=== PATIENT | male | born 1995 | race Caucasian/White ===

== ENCOUNTER 2023-06-07 18:10 | Emergency (ER) | payer BC, SELFPAY ==
[2023-06-07 19:08] VITALS: BP 154/74; PULSE 110; RESP 18; TEMP 36.8; O2SAT 100; BMI 84.7
--- NOTE | 2023-06-07 20:44 | ED.WOUNDLAC ---
HPI - Wound/Laceration General Chief Complaint: Wound/Laceration Stated Complaint: left hand laceration Time Seen by Provider: 06/07/23 20:12 Source: patient and family Mode of arrival: ambulatory Limitations: no limitations History of Present Illness HPI narrative: This is a 27-year-old male who has a history of insulin-dependent diabetes and hypertension who presents to the ER with complaints of laceration to the left 2nd digit from an Axe while chopping wood. Patient's tetanus status is unknown. He denies any numbness, tingling, weakness of the extremity. Related Data Previous Rx's Medication Instructions Recorded cephalexin 500 mg capsule 500 mg PO BID #14 caps 06/07/23 Allergies Allergy/AdvReac Type Severity Reaction Status Date / Time No Known Allergies Allergy Verified 06/07/23 19:07 [No Known Allergies*] Review of Systems Review of Systems: Yes all other systems are reviewed and are negative Constitutional: Constitutional: Reports no additional constitutional complaints, Denies body ache(s), Denies chills, Denies fever(s), Denies headache(s) and Denies weakness Eyes: Eyes: Reports no additional eye complaints and Denies change in vision ENT: Reports system reviewed and no additional complaints, except as documented, Denies dizziness, Denies headache(s), Denies nasal congestion, Denies nasal discharge and Denies neck pain Cardiovascular: Cardiovascular: Reports no additional cardiovascular complaints, Denies chest pain, Denies leg edema and Denies dyspnea Respiratory: Respiratory: Reports no additional respiratory complaints, Denies cough and Denies dyspnea Gastrointestinal: Gastrointestinal: Reports no additional gastrointestinal complaints, Denies abdominal pain, Denies diarrhea, Denies nausea and Denies vomiting Genitourinary: Genitourinary: Denies urinary incontinence Musculoskeletal: Musculoskeletal: Reports no additional musculoskeletal complaints, Denies back pain, Denies arthralgias, Denies joint swelling, Denies neck pain, Denies numbness and Denies tingling Integumentary/Breasts: Skin/Breast: Reports system reviewed and no additional complaints, except as docu, Denies rash and Reports wounds Neurologic: Reports system reviewed and no additional complaints, except as documented, Denies Abnormal speech present, Denies dizziness, Denies headache(s), Denies numbness, Denies tingling and Denies weakness FORMERLY [facility], [facility] Past Medical History Attestation statement: The following information was validated with the patient. Source: old records reviewed and nursing notes reviewed Onset Date is defined in the Problem List Problems that require an onset date and time if occurred within 24 hrs of arrival to the ED Aortic Dissection and Rupture; Neurologic impairment; Cardiopulmonary Arrest; Endotracheal Intubation; Insertion or Replacement of Mechanical Circulatory Assist Device Social History Social History Advance Directives: No Advance Directives Information Provided: No Physical Exam Vital Signs: Vital Signs: Last Vital Signs Temp 98.3 F 06/07/23 19:08 Pulse 110 H 06/07/23 19:08 Resp 18 06/07/23 19:08 BP 154/74 H 06/07/23 19:08 Pulse Ox 100 06/07/23 19:08 O2 Del Method Room Air 06/07/23 19:08 BMI result Body Mass Index 84.7 Const: General: cooperative, healthy appearing, comfortable and no acute distress Orientation/consciousness: patient oriented x3 Limitations: no limitations HEENT: Head: Yes normal to inspection Ears: hearing grossly normal bilaterally General nose exam: Normal external nose present Face and sinus: Yes normal facial exam Mouth: Normal oral and palatal mucosa present Throat: Yes posterior oropharynx normal Eyes: General: appearance normal, both eyes and all related structures Pupils: Equal, round and reactive pupils present Neck: Neck: Yes normal visual inspection Chest: Chest palpation & inspection: normal inspection of the chest Resp: Effort & Inspection: normal respiratory effort Auscultation: clear to auscultation bilaterally Cardio: Rate: regular rate Rhythm: regular rhythm Peripheral pulses: Peripheral pulses 2+ throughout GI: Inspection: Yes normal to inspection Palpation (GI): Soft to palpation and nontender Auscultation: normal bowel sounds Back/Spine/Pelvis: Thoracic/Lumbar Spine: thoracic and lumbar spine normal to inspection Skin: General skin exam: no rashes or lesions noted Neuro: General: patient oriented x3, no focal motor deficits and normal sensation to monofilament Cranial nerves: Yes Equal, round and reactive pupils present Cognition (Neuro): normal cognition Speech: No Abnormal speech present Gait exam (Neuro): Normal gait present Motor exam (neuro): 5/5 motor strength present throughout Extrem: Other: To the left hand to the 2nd digit there is avulsion of the distal aspect with active bleeding. full active and passive range of motion. General: Yes normal to inspection Course Course Course Narrative: 2049-Site still bleeding. Surgicell reinforced with pressure dressing. Reevaluation(s) Reevaluation #1: 2129-Bleeding is controlled. Will discharge home. Reviewed worrisome signs/symptoms with patient and when to seek additional care. Comfortable with discharge home. Medications Administered Discontinued Medications Generic Name Dose Route Start Last Admin Trade Name Marian PRN Reason Stop Dose Admin Acetaminophen 975 mg 06/07/23 20:25 06/07/23 20:33 Acetaminophen 325 Mg Tablet PO 06/07/23 20:26 975 mg ONCE ONE Administration Cephalexin HCl 500 mg 06/07/23 20:25 06/07/23 20:33 Cephalexin 500 Mg Capsule PO 06/07/23 20:26 500 mg ONCE ONE Administration Diphtheria/Tetanus/Acell Pertussis 0.5 ml 06/07/23 20:25 06/07/23 20:32 Diphth,Pertus(Acell),Tet Adult 0.5 Ml Syringe IM 06/07/23 20:26 0.5 ml .ONCE ONE Administration Medical Decision Making Medical Decision Making MDM Narrative: This is a 27-year-old male who has a history of insulin-dependent diabetes and hypertension who presents to the ER with complaints of laceration to the left 2nd digit from an Axe while chopping wood. Patient's tetanus status is unknown. He denies any numbness, tingling, weakness of the extremity. To the left hand to the 2nd digit there is avulsion of the distal aspect with active bleeding. full active and passive range of motion. this laceration is not conducive to suture repair. There is active bleeding and so we will use Surgicel and direct compression. He will receive a tetanus shot, oral antibiotic and analgesia while in the emergency [facility] Differential Diagnosis Differential Diagnoses: The differential diagnosis associated with the presentation includes skin avulsion, laceration Admission/Observation Consideration of admission/observation: Escalation of care including admission/observation considered low concern for vascular injury, complex fracture or dislocation requiring advanced imaging and/or urgent orthopedic consultation Independent Historian Clinical information obtained from an independent historian. History obtained from or confirmed by: Friend Tests considered The following testing was considered but not selected: low concern for vascular injury, complex fracture or dislocation requiring advanced imaging Prescription Management I considered prescription management with: Antibiotic Procedures Procedure Narrative Procedure Narrative: Skin avulsion cleansed with 1 L NS, surgicell applied and pressure dressing. Discharge Plan Discharge Clinical Impression: Avulsion of skin Patient Disposition: Home, Self-Care Instructions: Skin Avulsion (ED) Additional Instructions: Leave the dressing in place for 24 hrs then remove carefully and change once daily. Leave the inner surgicell in place. You may trim the edges. It should fall of on its own. If not after one week you may soak it in water and very gently remove. Take tylenol for pain Take the antibiotic as prescribed Prescriptions: New cephalexin 500 mg capsule 500 mg PO BID Qty: 14 0RF Referrals: Physician,Unknown J [Primary Care Provider] - 1 week Stand Alone Forms: Work/School Release
== END 2023-06-07 21:40 | disposition home or self-care (01) ==
PROVIDERS: Emergency Provider Emergency Medicine
DX: S61.211A Laceration without foreign body of left index finger without damage to nail, initial encounter (principal); W27.0XXA Contact with workbench tool, initial encounter; Y93.9 Activity, unspecified; Y92.9 Unspecified place or not applicable; Y99.9 Unspecified external cause status; Z23 Encounter for immunization
CPT/HCPCS: 12001; 90471; 90715; 99283; 99284